=== PATIENT | male | born 1935 | race Caucasian/White ===

== ENCOUNTER 2019-10-26 10:56 | Emergency (ER) | payer MEDICARE, OTHER ==
[2019-10-26 11:53] LABS: #Basophils 0.1 thou/uL (0.0-0.2); #Lymphocytes 1.2 thou/uL (1.20-3.40); #Monocytes 0.8 thou/uL (0.11-0.59); %Basophils 1.6 % (0.0-1.0); %Eosinophils 0.5 % (0.0-10.0); %Lymphocytes 15.1 % (21.0-51.0); %Monocytes 9.5 % (0.0-10.0); %Neutrophils 73.3 % (42.0-75.0); Hemoglobin 12.5 g/dL (14.0-18.0); Mean Corpuscular Hemoglobin 29.4 pg (27.0-31.0); Mean Corpuscular Volume 94.8 fL (78.0-98.0); Mean Platelet Volume 11.8 fL (7.4-10.4); Platelet Count 139 thou/uL (130-400); RBC Distribution Width 14.3 % (11.5-14.5); Red Blood Cell (RBC) Count 4.26 mill/uL (4.70-6.10); White Blood Cell (WBC) Count 8.2 thou/uL (4.8-10.8)
[2019-10-26 12:11] LABS: ALT (SGPT) 24 U/L (8-55); AST (SGOT) 39 U/L (5-34); Albumin 4.1 g/dL (3.4-4.8); Alkaline Phosphatase 70 U/L (40-110); Anion Gap 17 mmol/L (10-20); BUN (Urea Nitrogen) 33 mg/dL (8.4-25.7); Bilirubin, Total 0.6 mg/dL (0.2-1.2); Calc. Creatinine Clearance 0 mL/min (70-130); Calcium 8.6 mg/dL (7.8-10.44); Carbon Dioxide 19 mmol/L (23-31); Chloride 111 mmol/L (98-107); Estimated GFR-MDRD 26; Globulin 3.8 g/dL (2.4-3.5); Glucose 109 mg/dL (83-110); Potassium 4.1 mmol/L (3.5-5.1); Protein, Total 7.9 g/dL (5.8-8.1); Sodium 143 mmol/L (136-145)
[2019-10-26 13:35] LABS: CKMB 13.3 ng/mL (0-6.6)
--- NOTE | 2019-10-26 20:33 | RAD ---
CHEST TWO VIEWS: 10/26/19 No prior films are available for comparison. An AICD is in place. The heart is mildly enlarged. There is mild diffuse interstitial change that is presumably edema. There are probably some tiny pleural effusions, but not large ones. No lobar consol idation was evident. IMPRESSION: Cardiomegaly and diffuse interstitial prominence. The prominence is felt to be most likely pulmonary edema, and therefore, represents mild congestive change. Infection as an etiology is possible but see ms less likely. POS: HOME
== END 2019-10-26 13:40 | disposition left against medical advice (07) ==
LOC: EDBD 10:56 → BURERS 10:56
DX: I24.9 Acute ischemic heart disease, unspecified (principal); N28.9 Disorder of kidney and ureter, unspecified; F41.9 Anxiety disorder, unspecified
CPT/HCPCS: 71046; 80053; 82553; 83880; 84484; 85025; 85379; 93005

== ENCOUNTER 2019-10-26 15:21 | Emergency (ER) | payer MEDICARE, OTHER ==
[2019-10-26] MEDS ORDERED: Enoxaparin Sodium 100 MG/ML SYRINGE ONE (15:50)
== END 2019-10-26 16:46 | disposition short-term general hospital (02) ==
LOC: BURERS 15:21
DX: I24.9 Acute ischemic heart disease, unspecified (principal); N28.9 Disorder of kidney and ureter, unspecified; F41.9 Anxiety disorder, unspecified; Z79.899 Other long term (current) drug therapy
CPT/HCPCS: 71046; 80053; 82553; 83880; 84484; 85025; 85379; 93005; 96372; J1650